=== PATIENT | male | born 1960 | race Caucasian/White ===

== ENCOUNTER → 2024-05-08 13:33 | Outpatient (REF) | payer OTHER, SELFPAY ==
--- NOTE | 2024-05-08 13:43 | ECG_ITS ---
Test Reason : [facility] drug therapy Blood Pressure : / mmHG Vent. Rate : 071 BPM Atrial Rate : 071 BPM P-R Int : 174 ms QRS Dur : 096 ms QT Int : 392 ms P-R-T Axes : 056 -04 035 degrees QTc Int : 425 ms Normal sinus rhythm Normal ECG No previous ECGs available Referred By: Mahogany Bergeron Electronically Signed By:VIVEK CARBALLO MD
== END ==
LOC: HO.CARD 13:33
PROVIDERS: Visit Provider Registered Nurse
DX: Z79.899 Other long term (current) drug therapy (principal)
CPT/HCPCS: 93005

== ENCOUNTER → 2024-05-08 13:43 | Outpatient (BNV) | payer OTHER, SELFPAY | PROVIDERS: Visit Provider Internal Medicine Cardiovascular Disease | DX: Z79.899 Other long term (current) drug therapy (principal) | CPT/HCPCS: 93010 ==